=== PATIENT | female | born 1960 | race Caucasian/White ===

== ENCOUNTER 2020-05-18 10:05 | Day surgery (SDC) | payer MEDICARE ==
[~2020-05-18] VITALS: Ht 157.5 cm; Wt 59.0 kg
[2020-05-18] MEDS ORDERED: MIDAZOLAM 1 MG/ML, 2ML ONE (10:42)
[2020-05-18] MEDS ORDERED: FENTANYL PF 100 MCG/2ML ONE (10:42)
[2020-05-18] MEDS ORDERED: LIDOCAINE 2%, 20ML ONE (10:43)
[2020-05-18] MEDS ORDERED: DIPHENHYDRAMINE 50 MG/ML, 1ML ONE (10:43)
[2020-05-18] MEDS ORDERED: DIPHENHYDRAMINE 50 MG/ML, 1ML IVPush ONE (11:00)
[2020-05-18 11:15] VITALS: BP 120/74
[2020-05-18] MEDS ORDERED: PREG75CA PO (11:43)
[2020-05-18] MEDS ORDERED: CROM26SP5 INH (11:43)
[2020-05-18] MEDS ORDERED: CARB200T4 PO (11:43)
[2020-05-18] MEDS ORDERED: CYAN-27 PO (11:43)
[2020-05-18] MEDS ORDERED: TIZA2CAP2 PO (11:43)
[2020-05-18] MEDS ORDERED: PANT40TA3 PO (11:43)
[2020-05-18] MEDS ORDERED: [UNRECOGNIZED DRUG - CODE] PO (11:43)
[2020-05-18] MEDS ORDERED: PRAV40TA2 PO (11:43)
[2020-05-18] MEDS ORDERED: MAGN500T PO (11:43)
[2020-05-18] MEDS ORDERED: FLUT9.9S INH (11:43)
[2020-05-18] MEDS ORDERED: MONT10TA6 PO (11:43)
[2020-05-18] MEDS ORDERED: ASPI81TA45 PO (11:43)
== END 2020-05-18 14:51 | disposition home or self-care (01) ==
LOC: EDSEX 10:05 → CACL 10:05
PROVIDERS: ATTEND Internal Medicine Cardiovascular Disease
DX: R06.02 Shortness of breath (principal); I27.9 Pulmonary heart disease, unspecified; E78.2 Mixed hyperlipidemia; G35 Multiple sclerosis; Z79.82 Long term (current) use of aspirin; Z79.899 Other long term (current) drug therapy; Z88.5 Allergy status to narcotic agent; Z88.8 Allergy status to other drugs, medicaments and biological substances
CPT/HCPCS: 36415; 82330; 82803; 82947; 84132; 84295; 85014; 93451; C1894; J1200; J2250; J3010